=== PATIENT | female | born 1980 | race Caucasian/White ===

== ENCOUNTER 2021-03-03 07:04 | Day surgery (SDC) | payer BC ==
[2021-02-28 11:00] VITALS: BMI 59.8
[~2021-03-03 07:04] MED LIST: LACTATED RINGERS 1,000 ML IV SCH
[2021-03-03 07:24] VITALS: TEMP 97.5
[2021-03-03] MEDS ORDERED: LACTATED RINGERS 1,000 ML IV ONE (07:24)
[2021-03-03] MEDS ORDERED: PROPOFOL 10 MG/ML 20 ML VIAL IV ONE (07:59)
[2021-03-03] MEDS ORDERED: KETAMINE 10 MG/ML 20 ML VIAL ONE (07:59)
[2021-03-03] MEDS ORDERED: LIDOCAINE 1% INJ 10MG/ML (20 ML MDV) ONE (07:59)
--- NOTE | 2021-03-03 08:01 | P.GSHP ---
History of Present Illness H&P Date: 03/03/21 CHIEF COMPLAINT: GERD HISTORY OF PRESENT ILLNESS: The patient is a 40-year-old female who presents reports gastroesophageal reflux disease. Upper endoscopy was offered for further evaluation and management. PAST MEDICAL HISTORY: Please see list. PAST SURGICAL HISTORY: Please see list. MEDICATIONS: Please see list. ALLERGIES: Please see list. SOCIAL HISTORY: No illicit drug use FAMILY HISTORY: No reports of Crohn disease or ulcerative colitis. REVIEW OF ORGAN SYSTEMS: CONSTITUTIONAL: No reports of fevers or chills. GI: Denies any blood in stools or constipation. PHYSICAL EXAM: VITAL SIGNS: Stable GENERAL: Well-developed and pleasant in no acute distress. HEENT: No scleral icterus. Extraocular movements grossly intact. Moist buccal mucosa. NECK: Supple without lymphadenopathy. CHEST: Unlabored respirations. Equal bilateral excursions. CARDIOVASCULAR: Regular rate and rhythm. Distal 2+ pulses. ABDOMEN: Soft, nondistended. MUSCULOSKELETAL: No clubbing, cyanosis, or edema. ASSESSMENT: 1. Gastroesophageal reflux disease PLAN: 1. Recommend proceeding with an upper endoscopy Past Medical History Past Medical History: Hypertension Additional Past Medical History / Comment(s): migraines. PCOS. anemia. History of Any Multi-Drug Resistant Organisms: None Reported Past Surgical History: Hysterectomy Additional Past Surgical History / Comment(s): d & c x 2. wisdom teeth when younger. Past Anesthesia/Blood Transfusion Reactions: No Reported Reaction Smoking Status: Never smoker Medications and Allergies Home Medications Medication Instructions Recorded Confirmed Type Fexofenadine HCl [Mariajose Allergy] 480 mg PO DAILY 01/25/21 02/28/21 History Iron 65 mg PO DAILY 01/25/21 02/28/21 History Lisinopril [Prinivil] 10 mg PO DAILY 01/25/21 02/28/21 History SUMAtriptan succinate [Imitrex] 25 mg PO DAILY PRN 01/25/21 02/28/21 History Ergocalciferol [Vitamin D2 (1250 50,000 unit PO WEEKLY 02/01/21 02/28/21 History Mcg = 65610 Iu)] Topiramate [Topamax] 25 mg PO DAILY 02/28/21 02/28/21 History Allergies Allergy/AdvReac Type Severity Reaction Status Date / Time No Known Allergies Allergy Verified 02/28/21 10:56 Surgical - Exam Vital Signs Temp Pulse Resp BP Pulse Ox 97.5 F L 87 18 134/89 98 03/03/21 07:23 03/03/21 07:23 03/03/21 07:23 03/03/21 07:23 03/03/21 07:23
--- NOTE | 2021-03-03 08:15 | P.PCN ---
Date of Procedure: 03/03/21 Description of Procedure: PREOPERATIVE DIAGNOSIS: Gastroesophageal reflux disease. Morbid obesity. POSTOPERATIVE DIAGNOSIS: Gastroesophageal reflux disease. Morbid obesity. Gastritis. Gastric ulcer along antrum Moderate to severe obstructive sleep apnea OPERATION: Esophagogastroduodenoscopy with biopsies along antrum. SURGEON: Jodi Guerrero MD ANESTHESIA: MAC. INDICATIONS: The patient is a 40-year-old female who presents with a history of reflux disease. Benefits and risks of the procedure were described. Informed consent was obtained. DESCRIPTION: The patient was brought into the endoscopy suite and laid in the left lateral decubitus position. An Olympus gastroscope was passed along the posterior oropharynx down to the distal esophagus where the squamocolumnar junction was encountered at 37 cm from the incisors. The stomach was entered and no bile reflux was found. Additional findings are listed below. Biopsies with cold forceps were obtained of the antrum. The first through third portion of the duodenum was examined and unremarkable. Retroflexion of the scope confirmed Hill grade 2 lower esophageal valve. The squamocolumnar junction demonstrated LA grade A erosive esophagitis. The stomach was desufflated. The patient tolerated the procedure well. FINDINGS: Squamocolumnar junction 37 cm from the incisors. Diaphragmatic hiatus at 37 cm. Hill grade 2 lower esophageal valve. LA grade A erosive esophagitis. No active duodenitis. Chronic gastritis Gastric ulcer along antrum RECOMMENDATIONS: 1. Omeprazole 40 mg daily for 2 weeks Plan - Discharge Summary Discharge Rx Participant: No New Discharge Prescriptions: Continue Fexofenadine HCl [Mariajose Allergy] 480 mg PO DAILY Iron 65 mg PO DAILY SUMAtriptan succinate [Imitrex] 25 mg PO DAILY PRN PRN Reason: Migraine Headache Topiramate [Topamax] 25 mg PO DAILY Lisinopril [Prinivil] 10 mg PO DAILY Ergocalciferol [Vitamin D2 (1250 Mcg = 33039 Iu)] 50,000 unit PO WEEKLY Discharge Medication List Fexofenadine HCl [Mariajose Allergy] 480 mg PO DAILY 01/25/21 [History] Iron 65 mg PO DAILY 01/25/21 [History] Lisinopril [Prinivil] 10 mg PO DAILY 01/25/21 [History] SUMAtriptan succinate [Imitrex] 25 mg PO DAILY PRN 01/25/21 [History] Ergocalciferol [Vitamin D2 (1250 Mcg = 36919 Iu)] 50,000 unit PO WEEKLY 02/01/21 [History] Topiramate [Topamax] 25 mg PO DAILY 02/28/21 [History] Follow up Appointment(s)/Referral(s): [facility] [NON-STAFF] - 03/09/21 Patient Instructions/Handouts: Sleep Apnea (GEN), Peptic Ulcer (DC) Activity/Diet/Wound Care/Special Instructions: Medication prescribed at local pharmacy Discharge Disposition: HOME SELF-CARE
[2021-03-03 08:31] VITALS: BP 142/88; PULSE 77; RESP 16
== END 2021-03-03 08:55 | disposition home or self-care (01) ==
LOC: ORWHC2ENDO 07:04
PROVIDERS: ATTEND Surgery Plastic and Reconstructive Surgery
DX: K31.9 Disease of stomach and duodenum, unspecified (principal); K21.9 Gastro-esophageal reflux disease without esophagitis; K25.9 Gastric ulcer, unspecified as acute or chronic, without hemorrhage or perforation; K29.70 Gastritis, unspecified, without bleeding; E66.01 Morbid (severe) obesity due to excess calories; Z68.44 Body mass index [BMI] 60.0-69.9, adult; G47.33 Obstructive sleep apnea (adult) (pediatric); I10 Essential (primary) hypertension; G43.909 Migraine, unspecified, not intractable, without status migrainosus; E28.2 Polycystic ovarian syndrome; D64.9 Anemia, unspecified; Z90.710 Acquired absence of both cervix and uterus; Z79.899 Other long term (current) drug therapy
CPT/HCPCS: 88305; 43239; J2001; J2704

== ENCOUNTER → 2021-05-25 | Outpatient (CLI) | payer BC ==
--- NOTE | 2021-05-25 16:30 | CONS ---
CONSULTATION DATE OF SERVICE: 05/25/2021 This 41-year-old lady has been evaluated in [facility] for possible obstructive sleep apnea-hypopnea syndrome. HISTORY OF PRESENT ILLNESS/SLEEP-WAKE EVALUATION: Patient's usual sleep schedule is from 11 p.m. to 5 a.m. on weekdays and to 7 or 8 a.m. on weekends. Sometimes she has problems with falling asleep. She used to read in the bedroom. At present she sleeps on the couch because she has difficulties sleeping in bed. She was told that she has episodes of stopped breathing when she had anesthesia for an upper endoscopy test done. She wakes up from sleep once with nocturia. The patient had a sleep study done in 2013 in another institution but was not able to fall asleep during the test, and subsequently results were not available. Very rarely she may start seeing her dreams right after falling asleep. According to the patient, she dreams a lot. No history of cataplexy or sleep paralysis. During the day, the patient does not take any naps. Menard Sleepiness Scale is 3. PAST MEDICAL HISTORY: Positive for hypertension, depression, headaches, insomnia, claustrophobia, iron deficiency anemia. PAST SURGICAL HISTORY: Partial hysterectomy, D and C. MEDICATIONS: 1. Lisinopril 10 mg once a day. 2. Topiramate 50 mg once a day. 3. Omeprazole 40 mg once a day. 4. Fexofenadine 180 mg once a day. 5. Iron supplement 65 mg once a day. 6. Vitamin C and D. PHYSICAL EXAMINATION: GENERAL APPEARANCE: Pleasant 41-year-old lady without distress. VITAL SIGNS: BP 169/83, HR 88, RR 14, height 5 feet 2-1/2 inches, weight 320.6 pounds, body mass index 57.5, temperature 97.7, oxygen saturation at room air 100%. HEENT: PERRLA, EOMI, evaluation of oropharynx showed tongue protrudes midline. Extremely low position of soft palate; Mallampati IV. NECK: Supple, no JVD. Thyroid is not palpable. Neck is wide; 19 inches in circumference. LUNGS: Clear to percussion and to auscultation. Good air exchange. No wheezing or rhonchi. HEART: S1, S2 regular. No murmurs, gallops, or rubs. ABDOMEN: Obese. EXTREMITIES: No clubbing or cyanosis. CONSULTANT DIETITIAN: Awake, alert, and oriented X3. Cranial nerves 2 to 7 intact. There is no fasciculation or atrophy. noted. No focal deficits observed. IMPRESSION: 1. Snoring, witnessed episodes of stopped breathing during sleep, extremely low position of soft palate, Mallampati IV, wide neck, 19 inches in circumference; obstructive sleep apnea-hypopnea syndrome. 2. Obesity. BMI 57.5. 3. Hypertension. 4. Headaches. 5. Depression. 6. Insomnia. 7. Claustrophobia. 8. History of iron deficiency anemia. 9. Status post partial hysterectomy. 10.Patient is preparing for bariatric surgery. PLAN: 1. Polysomnography for evaluation of patient's breathing during sleep and also to check for possibility of obesity hypoventilation. 2. CPAP/BiPAP titration if sleep study confirms obstructive sleep apnea-hypopnea syndrome. 3. Preferable position during sleep on the side. 4. No driving if patient feels any sleepiness. 5. I will see patient for follow up visit to explain results of testing and following plan. Thank you very much for referring this patient for consultation. Sincerely, Jimi Frankel MD, PhD, FAASM Diplomat of [employer] [employer] Sleep Medicine Board of [employer] [employer] Deputy Bailiff of [facility] [place] MMODL / IKEN: [id number] /
== END ==
LOC: SLEEP 11:22
PROVIDERS: ATTEND Internal Medicine
DX: G47.33 Obstructive sleep apnea (adult) (pediatric) (principal); E66.9 Obesity, unspecified; Z68.43 Body mass index [BMI] 50.0-59.9, adult; I10 Essential (primary) hypertension; F32.A Depression, unspecified; F40.240 Claustrophobia; Z90.711 Acquired absence of uterus with remaining cervical stump; Z86.2 Personal history of diseases of the blood and blood-forming organs and certain disorders involving the immune mechanism; Z79.899 Other long term (current) drug therapy
CPT/HCPCS: 99211

== ENCOUNTER → 2021-08-08 | Outpatient (CLI) | payer BC ==
[2021-08-08 11:23] VITALS: BMI 57.8
== END ==
LOC: BARWHC3 08:35
PROVIDERS: ATTEND Surgery Plastic and Reconstructive Surgery
DX: E66.01 Morbid (severe) obesity due to excess calories (principal); Z71.3 Dietary counseling and surveillance; Z68.43 Body mass index [BMI] 50.0-59.9, adult
CPT/HCPCS: 97804

== ENCOUNTER → 2021-12-14 | Outpatient (CLI) | payer BC ==
[2021-12-14 14:15] VITALS: BP 151/87; PULSE 83; TEMP 98.2; BMI 57.8
--- NOTE | 2021-12-14 15:00 | P.BASOAP ---
Subjective Progress Note Date: 12/14/21 DATE OF SERVICE: 12/14/2021 CHIEF COMPLAINT: Morbid obesity HISTORY OF PRESENT ILLNESS: Harshil Brito is a 41-year-old female who comes with lifelong morbid obesity. She has developed hypertensive heart disease, polycystic ovarian syndrome in no diagnosis of sleep apnea. She completed medical supervised weight loss. She is seeking the sleeve gastrectomy. At height of 5 feet 2 inches, her ideal body weight is 135 pounds. Her highest weight is 335 pounds at body mass index 61.4. She comes in 315 pounds from 320 pounds 1 year ago. Her body mass index is 57.8. She is 180 pounds overweight. PAST MEDICAL HISTORY: 1. Morbid obesity due to excess calories 2. Body mass index of 61.4, initial 3. Hypertensive heart disease. 4. Migraines 5. Iron deficiency 6. Polycystic ovarian syndrome PAST SURGICAL HISTORY: 1. Hysterectomy. 2. Dilatation and curettage HOME MEDICATIONS: Home Medications Medication Instructions Recorded Confirmed SUMAtriptan succinate [Imitrex] 25 mg PO DIRECTED PRN 01/25/21 02/22/22 lisinopriL [Prinivil] 10 mg PO HS 01/25/21 02/22/22 Ergocalciferol [Vitamin D2 (1250 50,000 unit PO KRUEGER 02/01/21 02/22/22 Mcg = 85008 Iu)] Multivit with Calcium,Iron,Min 1 each PO DAILY 02/10/22 02/22/22 [Women's Multivitamin] Topiramate 50 mg PO HS 02/10/22 02/22/22 Previous Rx's Medication Instructions Recorded Acetaminophen Tab [Tylenol Tab] 1,000 mg PO Q6HR PRN #30 tablet 02/14/22 Omeprazole [PriLOSEC] 40 mg PO DAILY #30 cap 02/14/22 Ondansetron Odt [Zofran Odt] 4 mg PO Q8HR PRN #9 tab 02/14/22 Simethicone 40 mg/0.6 ml Drops 40 mg PO PCHS PRN #30 ml 02/14/22 [Mylicon Drops] bisacodyL [Dulcolax] 5 mg PO DAILY PRN #10 tab 02/14/22 ALLERGIES: Allergies Allergy/AdvReac Type Severity Reaction Status Date / Time No Known Allergies Allergy Verified 02/13/22 09:52 SOCIAL HISTORY: No past tobacco use. FAMILY HISTORY: No family history of ulcerative colitis disease or Crohn's disease. Family history of morbid obesity. No lupus in the family. No reports of stomach or esophageal cancer. Her mother has blood clots in her legs. Her mother has a clotting disorder after giving to her sister. Her mother has irritable bowel syndrome. Her youngest sister had her gallbladder removed. REVIEW OF ORGAN SYSTEMS: CONSTITUTIONAL: At height of 5 feet 2 inches, her ideal body weight is 135 pounds. Her highest weight is 335 pounds at body mass index 61.4. She comes in 320 pounds. Her body mass index is 58.7. She is 185 pounds overweight. HEENT: Denies any active troubles with vision or hearing. ENDOCRINE: Denies diabetes. No hypothyroidism. CARDIOVASCULAR: She reports chest palpitations this year and has hypertensive heart disease which is new. RESPIRATORY: Denies asthma. Has seasonal ALLERGIES. Has dyspnea on exertion. GASTROINTESTINAL: Denies any bright red blood per rectum. No diarrhea. No constipation. GENITOURINARY: No bladder urgency. No recent blood in urine. Prior hysterectomy. MUSCULOSKELETAL: Has lower back pain and joint pain. Has osteoarthritis of the knees. NEURO: Has migraines. No seizure disorders. PSYCH: Has depression. No suicidal ideation. RHEUMATOLOGIC: No lupus. No rheumatoid arthritis. HEMATOLOGIC: Denies any abnormal bleeding or bruising. SKIN: No rash. No skin cancer. PHYSICAL EXAM: VITAL SIGNS: Height 5 foot 2 inches, weight 315 pounds. BMI 57.8 Vital Signs Temp 98.2 F 12/14/21 14:13 Pulse 83 12/14/21 14:13 Resp BP 151/87 12/14/21 14:13 Pulse Ox FiO2 GENERAL: Well-developed in no acute distress. HEENT: No scleral icterus. Extraocular movements grossly intact. Hears conversational speech. No nasal drainage. NECK: Supple without lymphadenopathy. CHEST: Nonlabored respirations with equal bilateral excursions. CARDIOVASCULAR: Regular rate and regular rhythm. Distal 2+ pulses. ABDOMEN: Obese, soft, nontender, nondistended. MUSCULOSKELETAL: No clubbing, cyanosis. NEURO: No focal or lateralizing signs. Cranial nerves 2 through 12 grossly within normal limits. PSYCH: Appropriate affect. Alert and oriented to person, place and time. SKIN: Good skin turgor. Well perfused. REPORTS: Sleep apnea report reviewed. ASSESSMENT: 1. Morbid obesity due to excess calories 2. Body mass index of 61.4, initial to 57.8 3. Hypertensive heart disease. 4. Migraines 5. Iron deficiency 6. Polycystic ovarian syndrome 7. Vitamin D deficiency 8. Gastric ulcer 9. Sleep apnea. PLAN: 1. Bariatric options between a sleeve, band and a Tremayne-en-Y gastric bypass were reviewed in detail. The patient elected for a sleeve gastrectomy. Robotic assisted approach described. 2. The [place] [facility] Data was also reviewed with benefits and risks as described. 3. An 8 page second-generation bariatric consent form was reviewed in detail including potential of bleeding, infection, leaks, adequate weight loss, nut ritional deficiencies which the patient demonstrated understanding of the risks. 4. A 2 week high-protein low caloric 800 kcal diet described to address hepatomegaly. 5. Recommend bariatric labs 6. DVT prophylaxis per [place] [facility]. 7. Antibiotic prophylaxis. 8. Inpatient hospitalization anticipated for more than 2 nights. 9. All questions and concerns were addressed with the patient. 10. She is at elevated risk with her medical comorbidities. 11. Overall, patient has expressed understanding of bariatric care including postoperative diet and commitment of lifestyle. Patient should benefit from surgical intervention for correction of her morbid obesity. 12. Patient advised to undergo exercise including fidget 13. Anticipated weight loss over 10 pounds described. 14. Recommend fluid intake over 64 oz. Objective - Vital Signs Vital signs: Vital Signs Temp 98.2 F 12/14/21 14:13 Pulse 83 12/14/21 14:13 Resp BP 151/87 12/14/21 14:13 Pulse Ox FiO2 Intake & Output 12/13/21 12/14/21 12/14/21 18:59 06:59 18:59 Weight 143.335 kg - Labs CBC & Chem 7: 12/14/21 15:29 12/14/21 15:29 Assessment/Plan Plan: Date: 12/14/21 Initial Weight: 145.603 kg Initial BMI: 58.7 Current Weight: 143.335 kg Current BMI: 57.8 Type of Surgery: Total Volume in Band: Previous Volume: Volume Removed: Volume Added: Band Size:
[2021-12-14 16:42] LABS: Prothrombin Time 10.4 sec (9.0-12.0)
[2021-12-14 23:35] LABS: LDL Cholesterol,Calculated 132.2 mg/dL (0.0-131.0); Prealbumin 16.6 mg/dL (18.0-42.0)
[2021-12-14 23:45] LABS: Magnesium 2.1 mg/dL (1.5-2.4)
[2021-12-14 23:46] LABS: % Iron Saturation 8.86 (12.00-45.00); ALT 26 U/L (8-44); AST 23 U/L (13-35); African American GFR (CKD) 109.5 (60.0-200.0); Albumin 4.2 g/dL (3.8-4.9); Albumin/Globulin Ratio 1.53 (1.60-3.17); Alkaline Phosphatase 102 U/L (41-126); BUN/Creat Ratio 18.84 Ratio (12.00-20.00); Blood Urea Nitrogen 14.6 mg/dL (9.0-27.0); Calcium 9.6 mg/dL (8.7-10.3); Carbon Dioxide 24.3 mmol/L (20.0-27.5); Chloride 102 mmol/L (96-109); Ferritin 78.6 ng/mL (10.0-291.0); Globulin 2.7 g/dL (1.6-3.3); Glucose 77 mg/dL (70-110); Iron 30 ug/dL (50-170); Non-African American GFR(CKD) 94.5 (60.0-200.0); Phosphorus 4.1 mg/dL (2.4-5.1); Potassium 4.4 mmol/L (3.5-5.5); Sodium 139 mmol/L (135-145); Total Iron Binding Capacity 337 ug/dL (228-460); Total Protein 6.9 g/dL (6.2-8.2)
[2021-12-15 02:35] LABS: HCT 41.1 % (37.2-46.3); HGB 12.3 g/dL (12.0-15.0); MCH 23.6 pg (27.0-32.0); MCHC 29.9 g/dL (32.0-37.0); MCV 78.7 fL (80.0-97.0); Mean Platelet Volume 11.5 fL (9.5-12.2); NRBC Per 100 WBC 0 /100 WBCS (0.0-0.0); RBC 5.22 X 10*6/uL (4.10-5.20); RDW 15.6 % (11.5-14.5)
[2021-12-15 15:32] LABS: Zinc, Serum 68 ug/dL (60-130)
[2021-12-16 06:27] LABS: Vit B1(Thiamine) 70 ug/L (38-122)
[2021-12-16 06:54] LABS: Vitamin A 43 ug/dL (38-106)
[2021-12-19 09:10] LABS: Selenium 127 mcg/L (63-160)
== END ==
LOC: BARWHC3 13:46
PROVIDERS: ATTEND Surgery Plastic and Reconstructive Surgery
DX: E66.01 Morbid (severe) obesity due to excess calories (principal); I11.9 Hypertensive heart disease without heart failure; Z68.44 Body mass index [BMI] 60.0-69.9, adult; M17.0 Bilateral primary osteoarthritis of knee; F32.A Depression, unspecified; G43.909 Migraine, unspecified, not intractable, without status migrainosus; E28.2 Polycystic ovarian syndrome; E55.9 Vitamin D deficiency, unspecified; K25.9 Gastric ulcer, unspecified as acute or chronic, without hemorrhage or perforation; G47.30 Sleep apnea, unspecified; E89.1 Postprocedural hypoinsulinemia; D50.8 Other iron deficiency anemias; K91.2 Postsurgical malabsorption, not elsewhere classified; E44.0 Moderate protein-calorie malnutrition; E44.1 Mild protein-calorie malnutrition; E45 Retarded development following protein-calorie malnutrition; K74.1 Hepatic sclerosis; N19 Unspecified kidney failure; T56.894A Toxic effect of other metals, undetermined, initial encounter; K50.90 Crohn's disease, unspecified, without complications
CPT/HCPCS: 80053; 80061; 82306; 82525; 82607; 82728; 82746; 83036; 83540; 83550; 83735; 83970; 84100; 84134; 84255; 84425; 84443; 84590; 84630; 85027; 85610; 85730; 99211

== ENCOUNTER → 2022-02-09 | Outpatient (CLI) | payer BC ==
[2022-02-09 18:10] LABS: Basophils # (A) 0.04 X 10*3/uL (0.00-0.10); Basophils % (A) 0.6 %; Eosinophils # (A) 0.15 X 10*3/uL (0.04-0.35); Eosinophils % (A) 2.2 %; HGB 12.3 g/dL (12.0-15.0); Immature Grans, Automated 0.4 %; Lymphocytes # (A) 1.61 X 10*3/uL (0.90-5.00); MCH 24.6 pg (27.0-32.0); MCHC 30.8 g/dL (32.0-37.0); MCV 80.2 fL (80.0-97.0); Mean Platelet Volume 11.8 fL (9.5-12.2); Monocytes # (A) 0.39 X 10*3/uL (0.20-1.00); Monocytes % (A) 5.8 %; NRBC Per 100 WBC 0 /100 WBCS (0.0-0.0); Neutrophils # (A) 4.49 X 10*3/uL (1.80-7.70); Platelet Count 182 X 10*3/uL (140-440); RBC 4.99 X 10*6/uL (4.10-5.20); RDW 15.9 % (11.5-14.5); WBC 6.71 X 10*3/uL (4.50-10.00)
[2022-02-09 18:58] LABS: African American GFR (CKD) 123.9 (60.0-200.0); Albumin 4.2 g/dL (3.8-4.9); Albumin/Globulin Ratio 1.45 (1.60-3.17); Anion Gap 12.6 mmol/L (10.00-18.00); BUN/Creat Ratio 17.86 Ratio (12.00-20.00); Blood Urea Nitrogen 12.5 mg/dL (9.0-27.0); Calcium 9.3 mg/dL (8.7-10.3); Carbon Dioxide 24.4 mmol/L (20.0-27.5); Globulin 2.9 g/dL (1.6-3.3); Non-African American GFR(CKD) 106.9 (60.0-200.0); Potassium 4.6 mmol/L (3.5-5.5); Total Bilirubin 0.4 mg/dL (0.30-1.20); Total Protein 7.1 g/dL (6.2-8.2)
== END | disposition home or self-care (01) ==
LOC: LABPAT 11:39
PROVIDERS: ATTEND Surgery Plastic and Reconstructive Surgery
DX: Z01.812 Encounter for preprocedural laboratory examination (principal)
CPT/HCPCS: 80053; 85025

== ENCOUNTER 2022-02-13 09:15 | Observation (INO) | payer BC ==
[~2022-02-13 09:15] MED LIST changes: +CHLORHEXIDINE GLUCONATE 15 ML CUP MUCOUS MEM PRN; +DEXAMETHASONE SOD PHOSPHATE 4 MG/ML 1 ML VIAL IV ONE; +ENOXAPARIN 40 MG/0.4 ML SYRINGE SQ PRN; +HYDROmorphone 0.5 MG/0.5 ML SYRINGE IVP PRN; -LACTATED RINGERS 1,000 ML IV SCH; +LIDOCAINE 1% (10MG/ML) FOR IV START INTRADERMA PRN; +MIDAZOLAM 2 MG/2 ML VIAL IV PRN; +ONDANSETRON 4 MG/2 ML VIAL IVP ONE; +PANTOPRAZOLE 40 MG/10 ML VIAL IVP PRN; +ceFAZolin 3 GM in SODIUM CHLORIDE 0.9% 100 ML IVPB PRN
--- NOTE | 2022-02-13 09:17 | P.GSHP ---
History of Present Illness H&P Date: 02/13/22 DATE OF SERVICE: 03/09/2021 CHIEF COMPLAINT: Morbid obesity HISTORY OF PRESENT ILLNESS: Harshil Zimmerman is a 41-year-old female who comes with lifelong morbid obesity. She has developed hypertensive heart disease as a result. She completed bariatric nurse assessment. She is looking to the sleeve gastrectomy. At height of 5 feet 2 inches, her ideal body weight is 135 pounds. Her highest weight is 335 pounds at body mass index 61.4. She comes in 320 pounds unchanged from 1 month ago. Her body mass index is 58.7. She is 185 pounds overweight. PAST MEDICAL HISTORY: 1. Morbid obesity due to excess calories 2. Body mass index of 61.4, initial 3. Hypertensive heart disease. 4. Migraines 5. Iron deficiency 6. Polycystic ovarian syndrome PAST SURGICAL HISTORY: 1. Hysterectomy. 2. Dilatation and curettage HOME MEDICATIONS: Home Medications Medication Instructions Recorded Confirmed Fexofenadine HCl [Mariajose Allergy] 480 mg PO DAILY 01/25/21 03/09/21 Iron 65 mg PO DAILY 01/25/21 03/09/21 Lisinopril [Prinivil] 10 mg PO DAILY 01/25/21 03/09/21 SUMAtriptan succinate [Imitrex] 25 mg PO DAILY PRN 01/25/21 03/09/21 Ergocalciferol [Vitamin D2 (1250 50,000 unit PO WEEKLY 02/01/21 03/09/21 Mcg = 47575 Iu)] Topiramate [Topamax] 25 mg PO DAILY 02/28/21 03/09/21 Previous Rx's Medication Instructions Recorded Omeprazole [PriLOSEC] 40 mg PO DAILY #14 cap 03/08/21 ALLERGIES: Allergies Allergy/AdvReac Type Severity Reaction Status Date / Time No Known Allergies Allergy Verified 03/09/21 14:55 SOCIAL HISTORY: No past tobacco use. FAMILY HISTORY: No family history of ulcerative colitis disease or Crohn's disease. Family history of morbid obesity. No lupus in the family. No reports of stomach or esophageal cancer. Her mother has blood clots in her legs. Her mother has a clotting disorder after giving to her sister. Her mother has irritable bowel syndrome. Her youngest sister had her gallbladder removed. REVIEW OF ORGAN SYSTEMS: CONSTITUTIONAL: At height of 5 feet 2 inches, her ideal body weight is 135 pounds. Her highest weight is 335 pounds at body mass index 61.4. She comes in 320 pounds. Her body mass index is 58.7. She is 185 pounds overweight. HEENT: Denies any active troubles with vision or hearing. ENDOCRINE: Denies diabetes. No hypothyroidism. CARDIOVASCULAR: She reports chest palpitations this year and has hypertensive heart disease which is new. RESPIRATORY: Denies asthma. Has seasonal ALLERGIES. Has dyspnea on exertion. GASTROINTESTINAL: Denies any bright red blood per rectum. No diarrhea. No constipation. GENITOURINARY: No bladder urgency. No recent blood in urine. Prior hysterectomy. MUSCULOSKELETAL: Has lower back pain and joint pain. Has osteoarthritis of the knees. NEURO: Has migraines. No seizure disorders. PSYCH: Has depression. No suicidal ideation. RHEUMATOLOGIC: No lupus. No rheumatoid arthritis. HEMATOLOGIC: Denies any abnormal bleeding or bruising. SKIN: No rash. No skin cancer. PHYSICAL EXAM: VITAL SIGNS: Height 5 foot 2 inches, weight 320 pounds. BMI 58.7 GENERAL: Well-developed in no acute distress. HEENT: No scleral icterus. Extraocular movements grossly intact. Hears conversational speech. No nasal drainage. NECK: Supple without lymphadenopathy. CHEST: Nonlabored respirations with equal bilateral excursions. CARDIOVASCULAR: Regular rate and regular rhythm. Distal 2+ pulses. ABDOMEN: Obese, soft, nontender, nondistended. MUSCULOSKELETAL: No clubbing, cyanosis. Has 6 cm redness along pre-tibia of right lower leg. NEURO: No focal or lateralizing signs. Cranial nerves 2 through 12 grossly within normal limits. PSYCH: Appropriate affect. Alert and oriented to person, place and time. SKIN: Good skin turgor. Well perfused. ASSESSMENT: 1. Morbid obesity due to excess calories 2. Body mass index of 61.4, initial to 58.7 3. Hypertensive heart disease. 4. Migraines 5. Iron deficiency 6. Polycystic ovarian syndrome 7. Vitamin D deficiency 8. Gastric ulcer 9. Sleep apnea. PLAN: 1. Bariatric options between a sleeve, band and a Tremayne-en-Y gastric bypass were reviewed in detail. The patient elected for a sleeve gastrectomy. Robotic assisted approach described. 2. The [place] [facility] Data was also reviewed with benefits and risks as described. 3. An 8 page second-generation bariatric consent form was reviewed in detail including potential of bleeding, infection, leaks, adequate weight loss, nutritional deficiencies which the patient demonstrated understanding of the risks. 4. A 2 week high-protein low caloric 800 kcal diet described to address hepatomegaly. 5. Preoperative labs including complete metabolic panel and CBC with type and screen recommended. 6. DVT prophylaxis per [place] [facility]. 7. Antibiotic prophylaxis. 8. Inpatient hospitalization anticipated for more than 2 nights. 9. All questions and concerns were addressed with the patient. 10. The patient is at elevated risk BMI over 50.0. 11. Overall, patient has expressed understanding of bariatric care including postoperative diet and commitment of lifestyle. Patient should benefit from surgical intervention for correction of morbid obesity. Past Medical History Past Medical History: Hypertension Additional Past Medical History / Comment(s): migraines. PCOS. anemia. History of Any Multi-Drug Resistant Organisms: None Reported Past Surgical History: Hysterectomy Additional Past Surgical History / Comment(s): d & c x 2. wisdom teeth when younger. Past Anesthesia/Blood Transfusion Reactions: No Reported Reaction Past Psychological History: No Psychological Hx Reported Additional Psychological History / Comment(s): 01/26/21 per patient undiagnosed depression. - Past Family History Mother Family Medical History: Deep Vein Thrombosis (DVT) Medications and Allergies Home Medications Medication Instructions Recorded Confirmed Type Iron 65 mg PO BID 01/25/21 02/10/22 History SUMAtriptan succinate [Imitrex] 25 mg PO DIRECTED PRN 01/25/21 02/10/22 History lisinopriL [Prinivil] 10 mg PO HS 01/25/21 02/10/22 History Ergocalciferol [Vitamin D2 (1250 50,000 unit PO KRUEGER 02/01/21 02/10/22 History Mcg = 50241 Iu)] Multivit with Calcium,Iron,Min 1 each PO DAILY 02/10/22 02/10/22 History [Women's Multivitamin] Topiramate 50 mg PO HS 02/10/22 02/10/22 History Allergies Allergy/AdvReac Type Severity Reaction Status Date / Time No Known Allergies Allergy Verified 02/09/22 11:10
[2022-02-13] MEDS ORDERED: SCOPOLAMINE 1 MG/72 HR PATCH TRANSDERM STA (09:26)
[2022-02-13] MEDS: LACTATED RINGERS 1,000 ML IV SCH ×2 (10:15→15:13)
[2022-02-13] MEDS ORDERED: DEXAMETHASONE SOD PHOSPHATE 4 MG/ML 1 ML VIAL IVP ONE (10:19)
[2022-02-13] MEDS ORDERED: ONDANSETRON 4 MG/2 ML VIAL IVP ONE (10:19)
[2022-02-13] MEDS ORDERED: SCOPOLAMINE 1 MG/72 HR PATCH TRANSDERM ONE (10:20)
[2022-02-13] MEDS ORDERED: GLYCOPYRROLATE 0.2 MG/ML 2 ML VIAL ONE (10:35)
[2022-02-13] MEDS ORDERED: PROPOFOL 10 MG/ML 20 ML VIAL IV ONE (10:35)
[2022-02-13] MEDS ORDERED: LIDOCAINE 2% INJ 20 MG/ML (2 ML VIAL) ONE (10:35)
[2022-02-13] MEDS ORDERED: fentaNYL (PF) 50 MCG/ML 2 ML AMP ONE (10:35)
[2022-02-13] MEDS ORDERED: NEOSTIGMINE 1 MG/ML 10 ML VIAL ONE (10:35)
[2022-02-13] MEDS ORDERED: SUCCINYLCHOLINE CHLORIDE 200 MG/10 ML VIAL IV ONE (10:35)
[2022-02-13] MEDS ORDERED: MIDAZOLAM 2 MG/2 ML VIAL ONE (10:35)
[2022-02-13] MEDS ORDERED: ROCURONIUM 10 MG/ML (5 ML VIAL) IV ONE (10:35)
[2022-02-13] MEDS ORDERED: HYDROmorphone (PF) 1 MG/ML ONE (10:35)
[2022-02-13] MEDS ORDERED: BUPIVACAIN-EPI 0.25%-1:200,000 30 ML VIAL SQ ONE (11:14)
[2022-02-13] MEDS ORDERED: SUMAtriptan succinate 25 MG TAB PO PRN (13:28)
[2022-02-13] MEDS ORDERED: SODIUM CHLORIDE 0.9% 1,000 ML IV ONE (13:29)
[2022-02-13] MEDS ORDERED: diphenhydrAMINE 50 MG/ML 1 ML VIAL IVP PRN (13:36)
[2022-02-13] MEDS ORDERED: NALOXONE 0.4 MG/ML 1 ML VIAL IV PRN ×2 (13:36→16:25)
--- NOTE | 2022-02-13 13:42 | P.OP ---
Date of Procedure: 02/13/22 Description of Procedure: SURGEON: OZ NELSON MD PREOPERATIVE DIAGNOSES: 1. Morbid obesity due to excess calories 2. Body mass index of 61.4, initial to 56.8 3. Hypertensive heart disease. 4. Migraines 5. Iron deficiency 6. Polycystic ovarian syndrome 7. Vitamin D deficiency 8. Gastric ulcer 9. Sleep apnea. POSTOPERATIVE DIAGNOSES: 1. Morbid obesity due to excess calories 2. Body mass index of 61.4, initial to 56.8 3. Hypertensive heart disease. 4. Migraines 5. Iron deficiency 6. Polycystic ovarian syndrome 7. Vitamin D deficiency 8. Gastric ulcer 9. Sleep apnea. 10. Hepatomegaly with fatty liver disease [employer] OPERATION: 1. Robotic assisted daVinci Xi laparoscopic sleeve gastrectomy with 40-Bolivian bougie, multiport. 2. Intraoperative esophagogastroduodenoscopy. ANESTHESIA: Gen. local anesthetic ESTIMATED BLOOD LOSS: 5 mL SPECIMENS REMOVED: Sleeve gastrectomy COMPLICATIONS: None. FINDINGS: 1. Negative intraoperative esophagogastrojejunoscopy leak test. 2. Hepatomegaly without large hiatal hernia 3. Total of 6 staplers used including 2 - 60 mm green robot heydi and 4 - 60 mm blue robot loads used to create the gastric sleeve. INDICATIONS: Harshil Zimmerman is a 41-year-old female who comes with lifelong morbid obesity. She has developed hypertensive heart disease as a result. She completed bariatric nurse assessment. She is looking to the sleeve gastrectomy. At height of 5 feet 2 inches, her ideal body weight is 135 pounds. Her highest weight is 335 pounds at body mass index 61.4. She comes in 300 pounds with 20 pound weight loss in over 3 months. Her body mass index is 56.8. All surgical options for morbid obesity had been described using the [place] bariatric surgery collaborative comorbidity resolution including complication risk score. A second-generation bariatric consent form was described in detail including the possibility of protein malnutrition, leaks, gastric stricture, venous thrombosis, gastroesophageal reflux disease, need for further surgery for which she demonstrated understanding. Benefits and risks of the procedure were described at length. Informed consent was obtained. DESCRIPTION: The patient was brought into the operating room theater. Preoperatively she had received Lovenox subcutaneously for DVT prophylaxis. Additionally she had Peridex oral solution as an oral decontaminant. After general induction, the abdomen was prepped and draped in standard sterile fashion. An Ioban draping was placed along the abdomen. A robotic da Marisel Xi system was prepped and primed. At 15 cm from the xiphoid, proposed port sites were marked with indelible marker along the anterior axillary line bilaterally, mid axillary line bilaterally with each ports were marked 10 to 15 cm from each other. The robotic stapler port was marked for the right midclavicular line. A 5 mm 0 degrees laparoscopic trocar entry was performed along the left upper quadrant. The abdomen was insufflated to 15 mmHg pressure was tolerated well. Diagnostic laparoscopy demonstrated no injury to bowel, viscera, or mesentery. No evidence of large hiatus hernia was identified. The liver edge was sharp consistent with 2 week low-carb high-protein diet. A 8 mm port was placed along the left upper abdominal wall after exchanging the 5 mm port. A separate 8 mm port was placed along the left lateral abdominal wall. Please note that the ports were placed at least 20 cm away from the target anatomy. Care was taken to check each robotic arms were safely away from collision with the bed or the patient. At the epigastrium, a medium sized Shital liver retractor was placed under direct visualization with the Iron Newspaper Stuffer placed under the right shoulder of the patient. Next, 12-mm robot stapler port was placed along the right upper quadrant. The camera 8-mm port was maintained along the epigastrium. The patient was repositioned in reverse Trendelenburg position at 21-degrees after lowering the bed. The robot was docked along the left side of the patient. Using a grasper for arm 4, a vessel sealer for arm 3, including grasper for arm 1, the robotic system was docked and primed as described. Instruments were interchanged by the assistant professor of art for stapler loads. The camera was placed at 30-degrees down. I had sat at the console. The pylorus was identified and 6 cm proximally along the greater curvature of the stomach, the short gastrics were mobilized upwards to the angle of His using a vessel sealer. Hemostasis was excellent during this portion of the procedure. Next, the upper pole of the stomach was adherent to the left dada, which was gently dissected free using atraumatic gras per. I went to the head of the bed and placed 40-Bolivian blunt bougie into the stomach. The bougie was readjusted by the nurse dress operator. Robotic stapler green load 60 mm 2 followed by blue 60 mm x 4 loads were used to create the sleeve. Initial firing was across the antrum of the stomach towards the angle of His. The staple line was linear without corkscrewing. The space from the angularis incisura of the sleeve was approximately 4 cm. I then went to the head of the bed to perform the intraoperative esophagogastroduodenoscopy leak test. The bougie was withdrawn. The upper pole of the stomach was bathed using normal saline solution. The scope was withdrawn with careful inspection along the staple line for which no leaks were found along the entire length. Additionally,the sleeve was completely hemostatic without any encroachment along the angularis incisura. Its topology was a soft "J". No stricture was encountered upon placement of the scope. The GI tract was desufflated. The patient tolerated this portion of the procedure well. The scope was completely withdrawn. The robot was undocked. I then rescrubbed into case, whereby the irrigation fluid was aspirated from the abdominal cavity. Tiseel fibrin sealant was placed along the entire staple length. Once dried the Shital liver retractor was removed. Pneumoperitoneum was removed from the abdomen and incisions were closed. Specimen was removed after reentering along incisions and abdomen was reinsufflated. The distal end of the sleeve gastrectomy specimen was brought out through the 12 mm port at the left upper quadrant. The specimen was gently removed en total. No contamination had occurred during this process. All instruments and pneumoperitoneum including irrigation fluid was removed from the abdominal cavity. The 12 mm port site was closed using 0-Vicryl and Anthony Lux and irrigated with diluted hydrogen peroxide. The final incisions were closed using subcuticular interrupted suture of 4-0 Monocryl. Exofin was applied to the skin once the skin had been cleansed. OptiFoam dressing was placed along the stomach extraction site. The sleeve specimen was measured and checked also for leaks which none were found. At the end of the procedure, needle, sponge, and instrument count was verified correct by the cardiovascular surgical tech. The patient was taken to the postanesthesia care unit in stable condition. She had tolerated the procedure well. Intraoperative films and findings were reviewed with the patient's family.
[2022-02-13] MEDS ORDERED: hydrALAZINE HCL 20 MG/ML 1 ML VIAL IVP ONE ×2 (14:12→14:24)
[2022-02-13] MEDS: SIMETHICONE 40 MG/0.6 ML DROPS 2,000 MG/30 ML BOTTLE PO SCH ×2 (15:35→21:59)
[2022-02-13] MEDS: ALBUTEROL NEBULIZED 2.5 MG/3 ML INHALATION SCH ×2 (16:20→21:06)
[2022-02-13] MEDS ORDERED: fentaNYL PCA 500 MCG/50 ML BAG IV PRN (16:25)
[2022-02-13] MEDS: 0.9% NACL WITH KCL 20 MEQ/L 1,000 ML IV SCH ×2 (17:21→21:58)
[2022-02-13] MEDS: ONDANSETRON 4 MG/2 ML VIAL IVP SCH (17:21)
[2022-02-13] MEDS ORDERED: DEXAMETHASONE SOD PHOSPHATE 10 MG/ML 1 ML VIAL IVP ONE (18:00)
[2022-02-13] MEDS ORDERED: ceFAZolin 3 GM in SODIUM CHLORIDE 0.9% 100 ML IVPB SCH (19:00)
[2022-02-13] MEDS ORDERED: lisinopriL 10 MG TAB PO SCH (21:00)
[2022-02-13] MEDS ORDERED: TOPIRAMATE 25 MG TAB PO SCH (21:00)
[2022-02-13] MEDS: PANTOPRAZOLE 40 MG/10 ML VIAL IVP SCH (21:59)
[2022-02-14] MEDS: ONDANSETRON 4 MG/2 ML VIAL IVP SCH ×4 (00:59→17:17)
[2022-02-14] MEDS: 0.9% NACL WITH KCL 20 MEQ/L 1,000 ML IV SCH ×3 (00:59→17:14)
[2022-02-14] MEDS: DEXAMETHASONE SOD PHOSPHATE 4 MG/ML 1 ML VIAL IVP SCH ×4 (00:59→17:14)
[2022-02-14] MEDS: LACTATED RINGERS 1,000 ML IV SCH ×2 (07:49)
[2022-02-14] MEDS: PANTOPRAZOLE 40 MG/10 ML VIAL IVP SCH (08:13)
[2022-02-14] MEDS: ALBUTEROL NEBULIZED 2.5 MG/3 ML INHALATION SCH ×3 (08:14→15:30)
[2022-02-14] MEDS: SIMETHICONE 40 MG/0.6 ML DROPS 2,000 MG/30 ML BOTTLE PO SCH ×3 (08:14→17:17)
[2022-02-14 08:34] VITALS: RESP 18
[2022-02-14] MEDS ORDERED: ENOXAPARIN 40 MG/0.4 ML SYRINGE SQ SCH (09:00)
[2022-02-14 10:20] LABS: Basophils # (A) 0.01 X 10*3/uL (0.00-0.10); Basophils % (A) 0.1 %; Eosinophils # (A) 0 X 10*3/uL (0.04-0.35); Eosinophils % (A) 0 %; HCT 39.8 % (37.2-46.3); HGB 12.6 g/dL (12.0-15.0); Immature Grans, Automated 0.5 %; Lymphocytes # (A) 0.88 X 10*3/uL (0.90-5.00); MCH 24.3 pg (27.0-32.0); MCHC 31.7 g/dL (32.0-37.0); MCV 76.7 fL (80.0-97.0); Mean Platelet Volume 10.7 fL (9.5-12.2); Monocytes # (A) 0.39 X 10*3/uL (0.20-1.00); Monocytes % (A) 3.1 %; NRBC Per 100 WBC 0 /100 WBCS (0.0-0.0); Neutrophils # (A) 11.23 X 10*3/uL (1.80-7.70); Neutrophils % (A) 89.3 %; Platelet Count 101 X 10*3/uL (140-440); RBC 5.19 X 10*6/uL (4.10-5.20); RDW 15.7 % (11.5-14.5); WBC 12.57 X 10*3/uL (4.50-10.00)
[2022-02-14 10:37] LABS: Magnesium 2.1 mg/dL (1.5-2.4)
[2022-02-14 10:47] LABS: African American GFR (CKD) 105.4 (60.0-200.0); Anion Gap 14.6 mmol/L (10.00-18.00); Blood Urea Nitrogen 8.5 mg/dL (9.0-27.0); Calcium 8.7 mg/dL (8.7-10.3); Carbon Dioxide 20.4 mmol/L (20.0-27.5); Non-African American GFR(CKD) 90.9 (60.0-200.0); Phosphorus 2.9 mg/dL (2.4-5.1); Potassium 4.7 mmol/L (3.5-5.5)
--- NOTE | 2022-02-14 12:08 | FL ---
EXAMINATION TYPE: FL UGI DATE OF EXAM: 02/14/2022 COMPARISON: NONE HISTORY: Post gastric surgery. TECHNIQUE: Limited single contrast UGI study is performed. A total of 30 seconds of fluoroscopic markus e was utilized during procedure and 33 images obtained. FINDINGS: The stomach demonstrate postsurgical morphology. No extravasation of contrast identified. No evidence of any mass or ulcer disease. The duodenal bulb, sweep, and proximal small bowel loops are unremarkable. IMPRESSION: Postsurgical changes without evidence of contrast extravasation.
[2022-02-14 13:54] VITALS: BP 132/82; PULSE 76; TEMP 97.8
[2022-02-14 13:56] VITALS: BMI 56.7
--- NOTE | 2022-02-14 15:56 | P.DS ---
Providers Date of admission: 02/14/22 13:50 Expected date of discharge: 02/14/22 Attending physician: Jodi Guerrero Primary care physician: Adria Beckwith Hospital Course: Discharge diagnosis 1. Morbid obesity due to excess calories 2. Body mass index of 61.4, initial to 56.8 3. Hypertensive heart disease. 4. Migraines 5. Iron deficiency 6. Polycystic ovarian syndrome 7. Vitamin D deficiency 8. Gastric ulcer 9. Sleep apnea. 10. Hepatomegaly with fatty liver disease Hospital course Harshil Zimmerman is a 41-year-old female who comes with lifelong morbid obesity. She has developed hypertensive heart disease as a result. Patient is status post Robotic assisted daVinci Xi laparoscopic sleeve gastrectomy. Her upper GI shows postsurgical changes without evidence of contrast extravasation. She is tolerating diet. Her pain is controlled. She is up and ambulating. She is having flatus. She is afebrile. She is stable for discharge. Physician Drying Room Operator note has been reviewed by physician. Signing provider agrees with the documented findings, assessment, and plan of care. As above. Medical reconciliation performed. Caution with lisinopril reviewed and the case of dehydration which may cause acute renal failure. Goal fluid intake 64 ounces described. Avoiding straws and carbonated beverages reviewed. Follow-up in the bariatric center in 3-5 days reviewed. All questions addressed. Esophagram also reviewed demonstrating no lesions or obstruction Procedures: OPERATION: 1. Robotic assisted daVinci Xi laparoscopic sleeve gastrectomy with 40-Burundian bougie, multiport. 2. Intraoperative esophagogastroduodenoscopy. ANESTHESIA: Gen. local anesthetic ESTIMATED BLOOD LOSS: 5 mL SPECIMENS REMOVED: Sleeve gastrectomy COMPLICATIONS: None. FINDINGS: 1. Negative intraoperative esophagogastrojejunoscopy leak test. 2. Hepatomegaly without large hiatal hernia 3. Total of 6 staplers used including 2 - 60 mm green robot heydi and 4 - 60 mm blue robot loads used to create the gastric sleeve. Patient Condition at Discharge: Stable Plan - Discharge Summary Discharge Rx Participant: Yes New Discharge Prescriptions: New Omeprazole [PriLOSEC] 40 mg PO DAILY #30 cap Acetaminophen Tab [Tylenol Tab] 1,000 mg PO Q6HR PRN #30 tablet PRN Reason: Pain bisacodyL [Dulcolax] 5 mg PO DAILY PRN #10 tab PRN Reason: Constipation Simethicone 40 mg/0.6 ml Drops [Mylicon Drops] 40 mg PO PCHS PRN #30 ml PRN Reason: Gas Ondansetron Odt [Zofran Odt] 4 mg PO Q8HR PRN #9 tab PRN Reason: Nausea Continue SUMAtriptan succinate [Imitrex] 25 mg PO DIRECTED PRN PRN Reason: Migraine Headache Multivit with Calcium,Iron,Min [Women's Multivitamin] 1 each PO DAILY lisinopriL [Prinivil] 10 mg PO HS Ergocalciferol [Vitamin D2 (1250 Mcg = 47206 Iu)] 50,000 unit PO KRUEGER Topiramate 50 mg PO HS Discontinued Iron 65 mg PO BID Discharge Medication List SUMAtriptan succinate [Imitrex] 25 mg PO DIRECTED PRN 01/25/21 [History] lisinopriL [Prinivil] 10 mg PO HS 01/25/21 [History] Ergocalciferol [Vitamin D2 (1250 Mcg = 91691 Iu)] 50,000 unit PO KRUEGER 02/01/21 [History] Multivit with Calcium,Iron,Min [Women's Multivitamin] 1 each PO DAILY 02/10/22 [History] Topiramate 50 mg PO HS 02/10/22 [History] Acetaminophen Tab [Tylenol Tab] 1,000 mg PO Q6HR PRN #30 tablet 02/14/22 [Rx] Omeprazole [PriLOSEC] 40 mg PO DAILY #30 cap 02/14/22 [Rx] Ondansetron Odt [Zofran Odt] 4 mg PO Q8HR PRN #9 tab 02/14/22 [Rx] Simethicone 40 mg/0.6 ml Drops [Mylicon Drops] 40 mg PO PCHS PRN #30 ml 02/14/22 [Rx] bisacodyL [Dulcolax] 5 mg PO DAILY PRN #10 tab 02/14/22 [Rx] [facility] [facility] [place] [facility] [place]/17/22 9:00 am Patient Instructions/Handouts: *Surgery [facility] - Managing Your Pain After Surgery Without Opioids, Nutrition after Bariatric Surgery (DC), Laparoscopic Sleeve Gastrectomy (DC), Deep Vein Thrombosis Prevention (ED) Activity/Diet/Wound Care/Special Instructions: Liquid diet only for 2 weeks until FEB 27 No lifting over 4 pounds in 4 weeks, MAR 15 May Shower. No soaking in bath tubs, until FEB 27 Please notify your surgeon if you develop nausea and vomiting including new onset of abdominal pain. Continue to use incentive spirometry to prevent pneumonias. Please continue to ambulate at home to prevent blood clots in legs. Follow-up at the bariatric center. May shower. Dressings to be discontinued by surgeon in the office. Drink 64 oz of fluid daily. Start protein shakes on . Notify bariatric center for temp over 101.0, increased pain, drainage from incisions. No straws or carbonated beverages. Liquid diet only. Sugar content should be less than 6 g to avoid dumping syndrome. Take MOM for constipation. CRUSH, OPEN, OR CUT TABLETS LARGER THAN A SIZE OF A TIC TAC
== END 2022-02-14 18:59 ==
LOC: OR 09:15 → 4SSUR 12:15 → OR 02-14 13:50 → 4SSUR 02-14 13:50
PROVIDERS: ADMIT Surgery Plastic and Reconstructive Surgery; ATTEND Surgery Plastic and Reconstructive Surgery
DX: E66.01 Morbid (severe) obesity due to excess calories (principal); Z68.44 Body mass index [BMI] 60.0-69.9, adult; K29.50 Unspecified chronic gastritis without bleeding; I11.9 Hypertensive heart disease without heart failure; G43.909 Migraine, unspecified, not intractable, without status migrainosus; E61.1 Iron deficiency; E28.2 Polycystic ovarian syndrome; E55.9 Vitamin D deficiency, unspecified; G47.33 Obstructive sleep apnea (adult) (pediatric); K76.0 Fatty (change of) liver, not elsewhere classified; R16.0 Hepatomegaly, not elsewhere classified; Z90.710 Acquired absence of both cervix and uterus; Z98.890 Other specified postprocedural states; Z82.49 Family history of ischemic heart disease and other diseases of the circulatory system; Z79.899 Other long term (current) drug therapy; Z83.2 Family history of diseases of the blood and blood-forming organs and certain disorders involving the immune mechanism
CPT/HCPCS: 43775; 94640 ×2; 94760; 97161; 97165; 86900; 86901; 80051; 82310; 82565; 83735; 84100; 84520; 85025; 86850; 88307; 74240; 43239; G0378; C1762; J2250; J0330; J0360; J1100 ×3; J2710; J0690; J2405 ×2; J1650 ×2; J3010 ×2; J1170 ×2; J2704; C9113 ×2; Q9967; J2001

== ENCOUNTER → 2022-02-17 | Outpatient (CLI) | payer BC ==
[2022-02-17 10:20] VITALS: BP 157/65; PULSE 85; TEMP 98.4; BMI 54.1
== END ==
LOC: BARWHC3 09:01
PROVIDERS: ATTEND Surgery Plastic and Reconstructive Surgery
DX: E66.01 Morbid (severe) obesity due to excess calories (principal); Z98.84 Bariatric surgery status; Z68.43 Body mass index [BMI] 50.0-59.9, adult
CPT/HCPCS: 99211

== ENCOUNTER → 2022-02-22 | Outpatient (CLI) | payer BC ==
[2022-02-22 16:34] VITALS: BP 143/85; PULSE 76; TEMP 98.2; BMI 53.4
--- NOTE | 2022-02-22 16:38 | P.BASOAP ---
Subjective Progress Note Date: 02/22/22 No heartburn. She is happy! She lost 30 pounds in 2 months. She is over 75 grams daily. She reports appropriate tenderness. She is ambulating. She is getting 54 ounnces. No nausea. Follow 1 month up. Objective - Vital Signs Vital signs: Vital Signs Temp 98.2 F 02/22/22 16:32 Pulse 76 02/22/22 16:32 Resp BP 143/85 02/22/22 16:32 Pulse Ox FiO2 Intake & Output 02/21/22 02/22/22 02/22/22 18:59 06:59 18:59 Weight 132.449 kg Assessment/Plan Plan: Date: 02/22/22 Initial Weight: 145.603 kg Initial BMI: 58.7 Current Weight: 132.449 kg Current BMI: 53.4 Type of Surgery: Total Volume in Band: Previous Volume: Volume Removed: Volume Added: Band Size:
== END | disposition home or self-care (01) ==
LOC: BARWHC3 15:30
PROVIDERS: ATTEND Surgery Plastic and Reconstructive Surgery
DX: E66.01 Morbid (severe) obesity due to excess calories (principal); Z71.3 Dietary counseling and surveillance
CPT/HCPCS: 97802; 99211

== ENCOUNTER → 2022-03-15 | Outpatient (CLI) | payer BC, OTHER ==
[2022-03-15 15:36] VITALS: TEMP 98.6; BMI 52.4
--- NOTE | 2022-03-15 15:46 | P.BASOAP ---
Subjective Progress Note Date: 03/15/22 She has lost 30 pounds in 3 months. She is walking much. No reports of abdominal pain. She is doing leg raises. She is doing arms and legs. No reports of GERD. No moderate dysphagia. She reports once episode of dumping. Objective - Vital Signs Vital signs: Vital Signs Temp 98.6 F 03/15/22 15:33 Pulse Resp BP Pulse Ox FiO2 Intake & Output 03/14/22 03/15/22 03/15/22 18:59 06:59 18:59 Weight 130.181 kg Assessment/Plan Plan: Date: 03/15/22 Initial Weight: 145.603 kg Initial BMI: 58.7 Current Weight: 130.181 kg Current BMI: 52.4 Type of Surgery: Vertical Sleeve Gastrectomy Total Volume in Band: Previous Volume: Volume Removed: Volume Added: Band Size:
[2022-03-15 17:21] LABS: Partial Thromboplastin Time 28.7 sec (22.0-30.0); Prothrombin Time 11.1 sec (9.0-12.0)
[2022-03-15 23:37] LABS: HCT 37.9 % (37.2-46.3); HGB 11.7 g/dL (12.0-15.0); MCHC 30.9 g/dL (32.0-37.0); Mean Platelet Volume 11.4 fL (9.5-12.2); NRBC Per 100 WBC 0 /100 WBCS (0.0-0.0); Platelet Count 144 X 10*3/uL (140-440); RBC 4.68 X 10*6/uL (4.10-5.20); RDW 16.4 % (11.5-14.5); WBC 6.81 X 10*3/uL (4.50-10.00)
[2022-03-16 00:33] LABS: Chol/HDL Ratio 4.03 Ratio; LDL Cholesterol,Calculated 115.9 mg/dL (0.0-131.0); Prealbumin 14.6 mg/dL (18.0-42.0)
[2022-03-16 01:39] LABS: % Iron Saturation 9.09 (12.00-45.00); ALT 24 U/L (8-44); AST 22 U/L (13-35); African American GFR (CKD) 113.2 (60.0-200.0); Albumin 4.1 g/dL (3.8-4.9); Albumin/Globulin Ratio 1.65 (1.60-3.17); Alkaline Phosphatase 93 U/L (41-126); BUN/Creat Ratio 11.66 Ratio (12.00-20.00); Blood Urea Nitrogen 8.8 mg/dL (9.0-27.0); Calcium 9.2 mg/dL (8.7-10.3); Chloride 103 mmol/L (96-109); Ferritin 82.6 ng/mL (10.0-291.0); Globulin 2.5 g/dL (1.6-3.3); Glucose 87 mg/dL (70-110); Iron 28 ug/dL (50-170); Magnesium 2.1 mg/dL (1.5-2.4); Non-African American GFR(CKD) 97.7 (60.0-200.0); Phosphorus 3.7 mg/dL (2.4-5.1); Potassium 4.1 mmol/L (3.5-5.5); Sodium 142 mmol/L (135-145); Total Iron Binding Capacity 302 ug/dL (228-460); Total Protein 6.5 g/dL (6.2-8.2)
[2022-03-16 12:37] LABS: Zinc, Serum 65 ug/dL (60-130)
[2022-03-17 06:27] LABS: Vitamin A 32 ug/dL (38-106)
== END | disposition home or self-care (01) ==
LOC: BARWHC3 14:40
PROVIDERS: ATTEND Surgery Plastic and Reconstructive Surgery
DX: E66.01 Morbid (severe) obesity due to excess calories (principal); D50.8 Other iron deficiency anemias; D50.9 Iron deficiency anemia, unspecified; K91.2 Postsurgical malabsorption, not elsewhere classified; E44.0 Moderate protein-calorie malnutrition; E44.1 Mild protein-calorie malnutrition; E45 Retarded development following protein-calorie malnutrition; E55.9 Vitamin D deficiency, unspecified; K74.1 Hepatic sclerosis; N19 Unspecified kidney failure; T56.894A Toxic effect of other metals, undetermined, initial encounter; K50.90 Crohn's disease, unspecified, without complications
CPT/HCPCS: 84255; 84134; 84425; 80061; 80053; 82607; 82728; 82525; 82746; 83540; 83550; 83735; 84100; 84443; 84590; 84630; 85027; 85610; 85730; 82306; 83970; 83036; 97803; 36415; G0463; 99211

== ENCOUNTER → 2022-05-24 | Outpatient (CLI) | payer OTHER ==
[2022-05-24 16:43] VITALS: RESP 16; TEMP 98.6; BMI 50.6
[2022-05-24 17:13] VITALS: BP 148/79
--- NOTE | 2022-05-24 17:39 | P.BASOAP ---
Subjective Progress Note Date: 05/24/22 Patient doing well following sleeve gastrectomy. No abdominal pain. No reflux. Recommend labs. Objective - Vital Signs Vital signs: Vital Signs Temp 98.6 F 05/24/22 16:40 Pulse Resp 16 05/24/22 16:40 BP 148/79 05/24/22 16:40 Pulse Ox FiO2 Intake & Output 05/23/22 05/24/22 05/24/22 18:59 06:59 18:59 Weight 125.645 kg Assessment/Plan Plan: Date: 05/24/22 Initial Weight: 145.603 kg Initial BMI: 58.7 Current Weight: 125.645 kg Current BMI: 50.6 Type of Surgery: Vertical Sleeve Gastrectomy Total Volume in Band: Previous Volume: Volume Removed: Volume Added: Band Size:
== END ==
LOC: BARWHC3 16:14
PROVIDERS: ATTEND Surgery Plastic and Reconstructive Surgery
DX: Z71.3 Dietary counseling and surveillance (principal); E66.01 Morbid (severe) obesity due to excess calories; Z68.43 Body mass index [BMI] 50.0-59.9, adult; Z98.84 Bariatric surgery status
CPT/HCPCS: 97803; G0463; 99211

== ENCOUNTER → 2022-05-25 | Outpatient (CLI) | payer OTHER ==
[2022-05-25 16:29] LABS: Partial Thromboplastin Time 30.1 sec (22.0-30.0); Prothrombin Time 10.5 sec (9.0-12.0)
[2022-05-25 22:53] LABS: HCT 41.6 % (37.2-46.3); HGB 12.9 g/dL (12.0-15.0); MCH 25.3 pg (27.0-32.0); MCV 81.7 fL (80.0-97.0); Mean Platelet Volume 11.5 fL (9.5-12.2); NRBC Per 100 WBC 0 /100 WBCS (0.0-0.0); Platelet Count 207 X 10*3/uL (140-440); RBC 5.09 X 10*6/uL (4.10-5.20); RDW 14.8 % (11.5-14.5); WBC 7.26 X 10*3/uL (4.50-10.00)
[2022-05-26 00:12] LABS: ALT 20 U/L (8-44); AST 22 U/L (13-35); African American GFR (CKD) 124.4 (60.0-200.0); Albumin 4.1 g/dL (3.8-4.9); Albumin/Globulin Ratio 1.69 (1.60-3.17); Alkaline Phosphatase 92 U/L (41-126); Blood Urea Nitrogen 11.9 mg/dL (9.0-27.0); Calcium 8.9 mg/dL (8.7-10.3); Carbon Dioxide 26.7 mmol/L (20.0-27.5); Chloride 106 mmol/L (96-109); Chol/HDL Ratio 3.82 Ratio; Globulin 2.4 g/dL (1.6-3.3); Glucose 81 mg/dL (70-110); LDL Cholesterol,Calculated 108.8 mg/dL (0.0-131.0); Non-African American GFR(CKD) 107.3 (60.0-200.0); Phosphorus 3.7 mg/dL (2.4-5.1); Potassium 4.5 mmol/L (3.5-5.5); Sodium 141 mmol/L (135-145); Total Protein 6.5 g/dL (6.2-8.2)
[2022-05-26 01:41] LABS: % Iron Saturation 8.61 (12.00-45.00); Iron 28 ug/dL (50-170); Total Iron Binding Capacity 321 ug/dL (228-460)
== END | disposition home or self-care (01) ==
LOC: LABWHC1 13:28
PROVIDERS: ATTEND Surgery Plastic and Reconstructive Surgery
DX: E89.1 Postprocedural hypoinsulinemia (principal); E66.01 Morbid (severe) obesity due to excess calories; D50.9 Iron deficiency anemia, unspecified; K91.2 Postsurgical malabsorption, not elsewhere classified; E44.0 Moderate protein-calorie malnutrition; E45 Retarded development following protein-calorie malnutrition; E55.9 Vitamin D deficiency, unspecified; K74.1 Hepatic sclerosis; N19 Unspecified kidney failure; T56.894A Toxic effect of other metals, undetermined, initial encounter; K50.90 Crohn's disease, unspecified, without complications
CPT/HCPCS: 36415; 80053; 80061; 82306; 82525; 82607; 82746; 83036; 83540; 83550; 83735; 83970; 84100; 84255; 84425; 84443; 84590; 84630; 85027; 85610; 85730

== ENCOUNTER → 2022-08-16 | Outpatient (CLI) | payer OTHER ==
[2022-08-16 16:33] VITALS: BP 162/104; PULSE 82; TEMP 98; BMI 49.4
--- NOTE | 2022-08-16 17:00 | P.BASOAP ---
Subjective Progress Note Date: 08/16/22 She has severe migraines. She is s/p sleeve. Recommend labs. No GERD. No dysphagia. She reports some weight loss but she wants to lose more. Labs reviewed. Zinc, vit d, iron. Labs needed. Objective - Vital Signs Vital signs: Vital Signs Temp 98 F 08/16/22 16:30 Pulse 82 08/16/22 16:30 Resp BP 162/104 08/16/22 16:30 Pulse Ox FiO2 Intake & Output 08/15/22 08/16/22 08/16/22 18:59 06:59 18:59 Weight 122.47 kg Assessment/Plan Plan: Date: 08/16/22 Initial Weight: 145.603 kg Initial BMI: 58.7 Current Weight: 122.47 kg Current BMI: 49.4 Type of Surgery: Total Volume in Band: Previous Volume: Volume Removed: Volume Added: Band Size:
== END ==
LOC: BARWHC3 15:09
PROVIDERS: ATTEND Surgery Plastic and Reconstructive Surgery
DX: E66.01 Morbid (severe) obesity due to excess calories (principal); Z68.42 Body mass index [BMI] 45.0-49.9, adult
CPT/HCPCS: 97803; G0463; 99211

== ENCOUNTER → 2022-08-17 | Outpatient (CLI) | payer OTHER ==
[2022-08-17 16:39] LABS: Partial Thromboplastin Time 28.4 sec (22.0-30.0); Prothrombin Time 10.6 sec (9.0-12.0)
[2022-08-17 22:50] LABS: HCT 44.7 % (37.2-46.3); HGB 13.7 g/dL (12.0-15.0); MCHC 30.6 g/dL (32.0-37.0); MCV 81.7 fL (80.0-97.0); Mean Platelet Volume 10.7 fL (9.5-12.2); NRBC Per 100 WBC 0 /100 WBCS (0.0-0.0); Platelet Count 176 X 10*3/uL (140-440); RBC 5.47 X 10*6/uL (4.10-5.20); RDW 15.4 % (11.5-14.5); WBC 7.16 X 10*3/uL (4.50-10.00)
[2022-08-17 23:45] LABS: % Iron Saturation 8.59 (12.00-45.00); ALT 18 U/L (8-44); AST 20 U/L (13-35); African American GFR (CKD) 106.8 (60.0-200.0); Albumin 4.4 g/dL (3.8-4.9); Albumin/Globulin Ratio 1.63 (1.60-3.17); Alkaline Phosphatase 94 U/L (41-126); BUN/Creat Ratio 19.44 Ratio (12.00-20.00); Blood Urea Nitrogen 15.3 mg/dL (9.0-27.0); Calcium 9.2 mg/dL (8.7-10.3); Carbon Dioxide 27.3 mmol/L (20.0-27.5); Chloride 102 mmol/L (96-109); Ferritin 39.4 ng/mL (10.0-291.0); Globulin 2.7 g/dL (1.6-3.3); Glucose 84 mg/dL (70-110); Iron 33 ug/dL (50-170); Magnesium 2.3 mg/dL (1.5-2.4); Non-African American GFR(CKD) 92.1 (60.0-200.0); Potassium 4.7 mmol/L (3.5-5.5); Sodium 140 mmol/L (135-145); Total Iron Binding Capacity 386 ug/dL (228-460); Total Protein 7.1 g/dL (6.2-8.2)
[2022-08-18 01:23] LABS: Chol/HDL Ratio 3.56 Ratio
[2022-08-18 15:25] LABS: Zinc, Serum 56 ug/dL (60-130)
== END | disposition home or self-care (01) ==
LOC: LABWHC1 15:51
PROVIDERS: ATTEND Surgery Plastic and Reconstructive Surgery
DX: E66.01 Morbid (severe) obesity due to excess calories (principal); E89.1 Postprocedural hypoinsulinemia; D50.8 Other iron deficiency anemias; E44.0 Moderate protein-calorie malnutrition; E44.1 Mild protein-calorie malnutrition; E45 Retarded development following protein-calorie malnutrition; E55.9 Vitamin D deficiency, unspecified; K74.1 Hepatic sclerosis; N19 Unspecified kidney failure; T56.894A Toxic effect of other metals, undetermined, initial encounter
CPT/HCPCS: 36415; 80053; 80061; 82306; 82525; 82607; 82728; 82746; 83036; 83540; 83550; 83735; 83970; 84100; 84134; 84255; 84425; 84443; 84590; 84630; 85027; 85610; 85730

== ENCOUNTER → 2022-12-14 | Outpatient (CLI) | payer OTHER | END | disposition home or self-care (01) | LOC: LABWHC1 12:32 | PROVIDERS: ATTEND Surgery Plastic and Reconstructive Surgery | DX: Z53.9 Procedure and treatment not carried out, unspecified reason (principal) ==

== ENCOUNTER → 2023-03-21 | Outpatient (CLI) | payer OTHER ==
--- NOTE | 2023-03-21 17:42 | P.BASOAP ---
Subjective Progress Note Date: 03/21/23 lost 50 pounds. 1 year out. No GERD. B/L feet ankle swelling. She is drinking 45 to 50 oz, She is getting is 80 g. She needs food journal. She gets anxiety from journaling. 183 oz recommended. Labs Has 2+labs. Objective - Vital Signs Vital signs: Intake & Output 03/20/23 03/21/23 03/21/23 18:59 06:59 18:59 Weight 123.831 kg Assessment/Plan Plan: Date: Initial Weight: 145.603 kg Initial BMI: Current Weight: 123.831 kg Current BMI: 49.9 Type of Surgery: Total Volume in Band: Previous Volume: Volume Removed: Volume Added: Band Size:
[2023-03-21 17:43] VITALS: BP 152/91; PULSE 92; TEMP 98.1; BMI 49.9
== END ==
LOC: BARWHC3 15:57
PROVIDERS: ATTEND Surgery Plastic and Reconstructive Surgery
DX: E66.01 Morbid (severe) obesity due to excess calories (principal); Z71.3 Dietary counseling and surveillance; Z68.42 Body mass index [BMI] 45.0-49.9, adult
CPT/HCPCS: 97803; G0463; 99211

== ENCOUNTER → 2023-03-22 | Outpatient (CLI) | payer OTHER ==
[2023-03-22 14:19] LABS: Partial Thromboplastin Time 29.1 sec (22.0-30.0); Prothrombin Time 10.9 sec (10.0-12.5)
[2023-03-22 20:44] LABS: Prealbumin 20.4 mg/dL (18.0-42.0)
[2023-03-22 21:10] LABS: ALT 17 U/L (8-44); AST 21 U/L (13-35); Albumin 4.2 d/dL (3.8-4.9); Alkaline Phosphatase 86 U/L (41-126); Blood Urea Nitrogen 14.7 mg/dL (9.0-27.0); Calcium 9.5 mg/dL (8.7-10.3); Carbon Dioxide 26.9 mmol/L (21.6-31.8); Chloride 101 mmol/L (96-109); Chol/HDL Ratio 3.34 Ratio; Ferritin 50.7 ng/mL (10.0-291.0); Globulin 2.8 d/dL (1.6-3.3); Glucose 80 mg/dL (70-110); LDL Cholesterol,Calculated 115.2 mg/dL (0.0-131.0); Potassium 4.3 mmol/L (3.5-5.5); Sodium 139 mmol/L (135-145); Total Bilirubin 0.6 mg/dL (0.3-1.2)
[2023-03-22 23:09] LABS: % Iron Saturation 17.54 (12.00-45.00); Iron 60 UG/DL (50-170); Magnesium 2.2 mg/dL (1.5-2.4); Phosphorus 3.8 mg/dL (2.4-5.1); Total Iron Binding Capacity 342 UG/DL (228-460)
[2023-03-23 01:38] LABS: HCT 44.6 % (37.2-46.3); HGB 13.9 d/dL (12.0-15.0); MCH 26.4 pg (27.0-32.0); MCHC 31.2 d/dL (32.0-37.0); MCV 84.8 FL (80.0-97.0); Mean Platelet Volume 11.6 FL (9.5-12.2); NRBC Per 100 WBC 0 X 10*3/uL (0.00-0.01); Platelet Count 146 X 10*3/uL (140-440); RBC 5.26 X 10*6/uL (4.10-5.20); RDW 13.7 % (11.5-14.5); WBC 6.64 X 10*3/uL (4.50-10.00)
[2023-03-23 12:24] LABS: Zinc, Serum 76 ug/dL (60-130)
== END | disposition home or self-care (01) ==
LOC: LABWHC1 12:13
PROVIDERS: ATTEND Surgery Plastic and Reconstructive Surgery
DX: E66.01 Morbid (severe) obesity due to excess calories (principal); E89.1 Postprocedural hypoinsulinemia; D50.8 Other iron deficiency anemias; E44.0 Moderate protein-calorie malnutrition; E55.9 Vitamin D deficiency, unspecified; K74.1 Hepatic sclerosis; N19 Unspecified kidney failure; T56.894A Toxic effect of other metals, undetermined, initial encounter; K91.2 Postsurgical malabsorption, not elsewhere classified; E44.1 Mild protein-calorie malnutrition; E45 Retarded development following protein-calorie malnutrition; E46 Unspecified protein-calorie malnutrition; K50.90 Crohn's disease, unspecified, without complications
CPT/HCPCS: 36415; 80053; 80061; 82306; 82525; 82607; 82728; 82746; 83036; 83540; 83550; 83735; 83970; 84100; 84134; 84255; 84425; 84443; 84590; 84630; 85027; 85610; 85730